=== PATIENT | male | born 1985 | race African-American/Black ===

== ENCOUNTER 2024-05-12 18:42 | Emergency (ER) | payer OTHER ==
[~2024-05-12] VITALS: Ht 185.4 cm; Wt 109.0 kg
[2024-05-12 18:59] VITALS: O2SAT 99
[2024-05-12] MEDS: ACETAMINOPHEN 325MG TABLET PO ONE (21:00)
[2024-05-12] MEDS: ONDANSETRON 4MG ODT PO ONE (21:00)
[2024-05-12] MEDS: IBUPROFEN 400MG TABLET PO ONE (21:00)
[2024-05-12] MEDS ORDERED: AMOX-494 MT (21:34)
[2024-05-12 22:02] VITALS: BP 119/80; PULSE 98; RESP 16; TEMP 39.61428; O2SAT 99
== END 2024-05-12 22:04 | disposition home or self-care (01) ==
LOC: ER 18:42
DX: J02.9 Acute pharyngitis, unspecified (principal); R50.9 Fever, unspecified; F41.9 Anxiety disorder, unspecified; F32.9 Major depressive disorder, single episode, unspecified; Z20.822 Contact with and (suspected) exposure to COVID-19
CPT/HCPCS: 99284; 87426; 87430; 87804 ×2; Q0162